=== PATIENT | female | born 1995 | race Caucasian/White ===

== ENCOUNTER 2021-07-08 12:00 | Emergency (ER) | payer OTHER ==
[~2021-07-08] VITALS: Ht 157.5 cm; Wt 61.2 kg
--- NOTE | 2021-07-08 12:01 | NUR ---
ARRIVED AT BED 10 WITH PATIENT NON RESPONSIVE, SET UP SUCTION - GLIDESCOPE - PULLED OUT ETT W STYLET - WHILE MORIS RT WAS BAGGING - PT WOKE UP AFTER 2ND DOSE OF NARCAN. PT STARTING SPITTING UP CONTENTS FROM STOMACH AND WAS ABLE TO RESPOND AND FIRST NAME. PT DID NOT NEED TO BE INTUBATED AT THIS TIME - GLIDESCOPE LEFT AT BEDSIDE IN CASE PT BECAME UNRESPONSIVE AGAIN.
[2021-07-08] MEDS ORDERED: INTUBATION KIT MC ONE (12:04)
--- NOTE | 2021-07-08 12:05 | NUR ---
PT WAS CARRIED OUT OF CAR ONTO GURNEY, PULSE CHECK, FAINT PULSE, PT PALLOR, GCS 3, NON RESPONSIVE, SHALLOW BREATHING. PT WAS TAKEN TO BED 10 AT THIS TIME WITH ERMD ASSESSING.
[2021-07-08 12:09] VITALS: BP 177/76
--- NOTE | 2021-07-08 12:15 | NUR ---
25/F BIB FRIENDS. PER FRIENDS PATIENT WAS PICKED UP FROM A [employer] THIS MORNING STATING SHE WAS UNRESPONSIVE, STATES UNSURE IF PATIENT TOOK DRUGS. UPON ARRIVAL PATIENT WAS FOUND SLUMPED OVER ON THE FLOOR IN FRONT OF THE FRONT PASSENGER SEAT, PATIENT WAS UNRESPONSIVE, CYANOTIC AND DIAPHORETIC, PUPILS PINPOINT. PULSES PALPABLE UPON ARRIVAL, BENJAMIN BROUGHT TO ER PARKING LOT AND PATIENT WAS CARRIED ONTO [facility]. PATIENT GIVEN A TOTAL OF 4MG OF NARCAN IV, PATIENT BEGAN WAKING UP AND RESPONDING TO QUESTIONS. PATIENT ADMITTED TO USING COCAINE AND CONSUMING ALCOHOL. PATIENT DENIES PAIN OR SOB AT THIS TIME. 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 CABRALES, RN, RT AND EMT AT BEDSIDE UPON ARRIVAL. MEDHX: DENIES ALLERGIES: DENIES
[2021-07-08] MEDS ORDERED: NACL 0.9% 2,000 ML IV ONE (12:50)
--- NOTE | 2021-07-08 13:15 | NUR ---
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 WILL CONTINUE TO MONITOR.
--- NOTE | 2021-07-08 14:20 | NUR ---
PATIENT HAD ONE EPISODE OF VOMITING, DR. CABRALES AWARE. PATIENT MEDICATED ORDERED.
[2021-07-08] MEDS ORDERED: ONDANSETRON 4 MG/2 ML VIAL ONE (14:21)
[2021-07-08] MEDS ORDERED: ONDANSETRON 4 MG/2 ML VIAL IVP ONE (14:25)
[2021-07-08] MEDS ORDERED: NACL 0.9% 1,000 ML IV ONE (14:35)
[2021-07-08] MEDS ORDERED: NALO4SPR NS (14:59)
[2021-07-08] MEDS ORDERED: METOCLOPRAMIDE 10 MG/2 ML INJ VIAL IVP ONE (15:10)
[2021-07-08] MEDS ORDERED: diphenhydrAMINE 50 MG/ML VIAL IVP ONE (15:10)
--- NOTE | 2021-07-08 15:15 | NUR ---
PATIENT HAD ONE MORE EPISODE OF VOMITING, DR. CURRY AWARE. PATIENT MEDICATED ORDERED.
--- NOTE | 2021-07-08 16:30 | NUR ---
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 MOTHER AT BEDSIDE, WILL CONTINUE TO MONITOR.
[2021-07-08 17:20] VITALS: BP 118/60
--- NOTE | 2021-07-08 17:20 | NUR ---
Patient discharged with v/s stable. Written and verbal after care instructions ABOUT OPIOID OVERDOSE given and explained. Patient alert, oriented and verbalized understanding of instructions. Ambulatory with steady gait. All questions addressed prior to discharge. ID band removed. Patient advised to follow up with PMD. Rx of NARCAN given. Patient educated on indication of medication including possible reaction and side effects. Opportunity to ask questions provided and answered.
--- NOTE | 2021-07-09 08:03 | NUR ---
LATE ENTRY-- 07/08/21 AT 1210 [facility] WAS OPENED AND ADMINISTERED 4MG OF NARCAN PER VERBAL ORDER OF DR. CABRALES.
== END 2021-07-08 17:20 | disposition home or self-care (01) ==
LOC: EDBD 12:00 → MED 12:00
DX: T40.604A Poisoning by unspecified narcotics, undetermined, initial encounter (principal); Z79.899 Other long term (current) drug therapy; Y92.89 Other specified places as the place of occurrence of the external cause
CPT/HCPCS: 71045; 92950; 93005; 96361; 96374; 96375; 99285; J1200; J2405; J2765; J7030